=== PATIENT | female | born 1985 | race Caucasian/White ===

== ENCOUNTER 2018-12-21 17:04 | Emergency (ER) | payer MEDICAID ==
[~2018-12-21] VITALS: Ht 172.7 cm; Wt 81.6 kg
[2018-12-21 17:47] VITALS: BP 113/75
--- NOTE | 2018-12-21 17:49 | NUR ---
TRIAGE COMPLETE OKAY TO WAIT IN LOBBY FOR BED IN ED.
--- NOTE | 2018-12-21 18:53 | NUR ---
INFORMED DR RUIZ HEADACHE WAS GETTING WORSE. NO NEW ORDERS RECEIVED. OKAY TO CONTINUE TO WAIT IN LOBBY.
--- NOTE | 2018-12-21 19:45 | NUR ---
PT BIB SELF FOR HEADACHE. NO N/V, BLURRED VISION. PT APPEARS TO BE IN NO ACUTE DISTRESS. PT SEEN AND EVALUATED BY DR TINSLEY SEE HIS REPORT FOR FURTHER NOTES.
[2018-12-21] MEDS ORDERED: KETOROLAC 60 MG/2 ML VIAL IM ONE (20:15)
[2018-12-21 20:29] VITALS: BP 113/75
--- NOTE | 2018-12-21 20:29 | NUR ---
Patient discharged with v/s stable. Written and verbal after care instructions given and explained. Patient alert, oriented and verbalized understanding of instructions. Ambulatory with steady gait. All questions addressed prior to discharge. ID band removed. Patient advised to follow up with PMD. Rx of naprosyn given. Patient educated on indication of medication including possible reaction and side effects. Opportunity to ask questions provided and answered. d/c by dr ferrell
== END 2018-12-21 20:29 | disposition home or self-care (01) ==
LOC: MED 17:04
DX: G44.209 Tension-type headache, unspecified, not intractable (principal); G43.909 Migraine, unspecified, not intractable, without status migrainosus
CPT/HCPCS: 96372; 99283; J1885

== ENCOUNTER 2019-03-18 18:50 | Emergency (ER) | payer MEDICAID ==
[~2019-03-18] VITALS: Ht 172.7 cm; Wt 93.4 kg
[2019-03-18 19:38] VITALS: BP 134/82
--- NOTE | 2019-03-18 19:45 | NUR ---
PT AMBULATED TO LOBBY WITH VSS. URINE SPECIMEN PROVIDED.
--- NOTE | 2019-03-18 20:56 | NUR ---
PATIENT ASSESSMENT COMPLETED AT THIS TIME. PATIENT SITTING UP IN CHAIR. NO NEEDS ADDRESSED AT THIS TIME.
[2019-03-18] MEDS ORDERED: KETOROLAC 30 MG/ML VIAL IM ONE (21:00)
[2019-03-18 21:18] VITALS: BP 134/82
--- NOTE | 2019-03-18 21:18 | NUR ---
Patient discharged with v/s stable. Written and verbal after care instructions given and explained. Patient alert, oriented and verbalized understanding of instructions. Ambulatory with to car. All questions addressed prior to discharge. ID band removed. Patient advised to follow up with PMD. Rx of tamiflu, naprozen, promethazine given. Patient educated on indication of medication including possible reaction and side effects. Opportunity to ask questions provided and answered.
--- NOTE | 2019-03-18 21:56 | NUR ---
Note eliot in ED - 03/18/19 at 2319 by FRANK Patient discharged with v/s stable. Written and verbal after care instructions given and explained. Patient verbalized understanding. Ambulatory with steady gait. All questions addressed prior to discharge. Advised to follow up with PMD.
== END 2019-03-18 21:18 | disposition home or self-care (01) ==
LOC: MED 18:50
DX: J06.9 Acute upper respiratory infection, unspecified (principal); G43.909 Migraine, unspecified, not intractable, without status migrainosus
CPT/HCPCS: 96372; 99283; J1885

== ENCOUNTER 2019-06-21 21:49 | Emergency (ER) | payer MEDICAID ==
[~2019-06-21] VITALS: Ht 167.6 cm; Wt 65.8 kg
--- NOTE | 2019-06-21 21:49 | NUR ---
PT C/O SOB/ DRY COUGH FOR ONE WEEK. NO CONTACTS WITH COVID SUSPECTS. RESP EVEN AND UNLABORED. LUNG SOUNDS CLEAR IN BILAT MEDINA. NO PMH NKA
--- NOTE | 2019-06-21 21:50 | NUR ---
PRINCE LOGAN ASSESSED PT IN TENT OUTSIDE FOR COVID SYMPTOMS
[2019-06-21 21:52] VITALS: BP 124/78
[2019-06-21 22:00] VITALS: BP 124/78
--- NOTE | 2019-06-21 22:02 | NUR ---
Patient discharged with v/s stable. Written and verbal after care instructions given and explained. Patient alert, oriented and verbalized understanding of instructions. Ambulatory with steady gait. All questions addressed prior to discharge. ID band removed. Patient advised to follow up with PMD. Rx of MOTRIN, PROMETHAZINE given. Patient educated on indication of medication including possible reaction and side effects. Opportunity to ask questions provided and answered.
== END 2019-06-21 22:01 | disposition home or self-care (01) ==
LOC: MED 21:49
DX: J06.9 Acute upper respiratory infection, unspecified (principal); G43.909 Migraine, unspecified, not intractable, without status migrainosus; R03.0 Elevated blood-pressure reading, without diagnosis of hypertension
CPT/HCPCS: 99283

== ENCOUNTER 2019-10-03 20:35 | Emergency (ER) | payer MEDICAID, SELFPAY ==
[~2019-10-03] VITALS: Ht 172.7 cm; Wt 77.1 kg
[2019-10-03 20:49] VITALS: BP 124/81
--- NOTE | 2019-10-03 20:58 | NUR ---
PT TO A/W IN TENT FOR MEDICAL EVAULATION. PT WEARING MASK
--- NOTE | 2019-10-03 21:08 | NUR ---
PT SEEN AND EVALUATED BY PRINCE LANDAVERDE IN TENT.
--- NOTE | 2019-10-03 21:21 | NUR ---
COVID SWAB COLLECTED
--- NOTE | 2019-10-03 21:25 | NUR ---
Patient discharged with v/s stable. Written and verbal after care instructions given and explained. Patient verbalized understanding. Ambulatory with steady gait. All questions addressed prior to discharge. Advised to follow up with PMD.
--- NOTE | 2019-10-05 19:11 | NUR ---
RECEIVED POSITIVE COVID RESULTS. LAB WILL BRING HARD COPY
== END 2019-10-03 21:25 | disposition home or self-care (01) ==
LOC: EEVIPCON 20:35 → MED 20:35
DX: U07.1 COVID-19 (principal); B34.9 Viral infection, unspecified
CPT/HCPCS: 99283; U0003

== ENCOUNTER 2019-10-08 10:57 | Emergency (ER) | payer MEDICAID, SELFPAY ==
[~2019-10-08] VITALS: Ht 172.7 cm; Wt 77.1 kg
[2019-10-08 11:09] VITALS: BP 106/64
--- NOTE | 2019-10-08 11:15 | NUR ---
URINE SAMPLE CUP GIVEN TO PT
--- NOTE | 2019-10-08 11:18 | NUR ---
DR. LANDAVERDE EVALUATING PT AT THIS TIME
--- NOTE | 2019-10-08 11:20 | NUR ---
33/F C/O URINARY FREQUENCY, URGENCY, DYSURIA X 2 DAYS DENIES N/V/D/FEVER. APPEARS NAD. VSS. COVID POSITIVE 10/02 HX- MIGRAINES
--- NOTE | 2019-10-08 11:26 | NUR ---
PT UNABLE TO PROVIDE URINE SAMPLE, DR. LANDAVERDE IS AWARE
--- NOTE | 2019-10-08 11:35 | NUR ---
Patient discharged with v/s stable. Written and verbal after care instructions given and explained. Patient alert, oriented and verbalized understanding of instructions. Ambulatory with steady gait. All questions addressed prior to discharge. ID band removed. Patient advised to follow up with PMD. Rx of MACROBID AND PHENAZOPYRIDINE given. Patient educated on indication of medication including possible reaction and side effects. Opportunity to ask questions provided and answered.
[2019-10-08 11:43] VITALS: BP 106/64
== END 2019-10-08 11:35 | disposition home or self-care (01) ==
LOC: MED 10:57
DX: N39.0 Urinary tract infection, site not specified (principal); G43.909 Migraine, unspecified, not intractable, without status migrainosus
CPT/HCPCS: 99283

== ENCOUNTER 2019-10-13 18:47 | Emergency (ER) | payer MEDICAID, SELFPAY ==
[~2019-10-13] VITALS: Ht 172.7 cm; Wt 77.1 kg
--- NOTE | 2019-10-13 19:10 | NUR ---
C/O COUGH & SOB X 2 WEEKS , + BODY ACHES , +LOSS OF TASTE & SMELL , +HOT FLASHES, -FEVER PT TESTED + COVID 10/04/19 PMH: MING PATIÑO
[2019-10-13 19:12] VITALS: BP 104/57
--- NOTE | 2019-10-13 19:15 | NUR ---
33 Y/O FEMALE PRESENTED TO ED C/O COUGH AND SOB X 2 WEEKS. PT STATES SHE TESTED + COVID ON 10/04/19. PT STATES SHE HAS HAD PRODUCTIVE COUGH + 2 WEEKS , BODY ACHES , HOT FLASHES. PT DENIES N/V/D/FEVER. PT SA02 100% , RR EVEN AND UNLABORED, BL CRACKLES IN BASES. NAD NOTED AT THIS TIME. PMH: NONE NKA PT HAS NOT TAKEN ANY MEDICATION FOR COUGH.
--- NOTE | 2019-10-13 19:26 | NUR ---
PER ERMD , NO NEED TO SWAB FOR COVID , PT TESTED + 10/04/19
--- NOTE | 2019-10-13 19:40 | NUR ---
ERMD AT BEDSIDE FOR EVALUATION
[2019-10-13 20:16] VITALS: BP 104/57
--- NOTE | 2019-10-13 20:16 | NUR ---
Patient discharged with v/s stable. Written and verbal after care instructions given and explained. Patient verbalized understanding. Ambulatory with steady gait. All questions addressed prior to discharge. Advised to follow up with PMD. PT provided contact information for infectious disease to receive covid19 testing results.
== END 2019-10-13 20:16 | disposition home or self-care (01) ==
LOC: MED 18:47
DX: U07.1 COVID-19 (principal); J02.9 Acute pharyngitis, unspecified; R05 Cough
CPT/HCPCS: 71045; 99283

== ENCOUNTER 2020-09-01 08:14 | Emergency (ER) | payer MEDICAID, SELFPAY ==
[~2020-09-01] VITALS: Ht 170.2 cm; Wt 77.1 kg
[2020-09-01 08:30] VITALS: BP 129/77
[2020-09-01] MEDS ORDERED: ONDANSETRON 4 MG/2 ML VIAL IVP ONE (08:40)
[2020-09-01] MEDS ORDERED: MECLIZINE 25 MG TAB PO ONE (08:40)
[2020-09-01] MEDS ORDERED: NACL 0.9% 1,000 ML IV ONE (08:40)
[2020-09-01 09:40] LABS: BASOPHILS % (AUTO) 0.8 % (0.0-2.0); EOSINOPHILS # (AUTO) 0.2 K/uL (0-0.4); EOSINOPHILS % (AUTO) 3.1 % (0.0-4.0); HEMATOCRIT 40.3 % (36-48); HEMOGLOBIN 13.9 g/dL (12.0-16.0); LYMPHOCYTES # (AUTO) 1.3 K/uL (2.5-16.5); MEAN CORPUSCULAR HEMOGLOBIN 32 pg (27-31); MEAN CORPUSCULAR HGB CONC 34 g/dL (33-37); MEAN CORPUSCULAR VOLUME 93.8 fL (80-94); MONOCYTES # (AUTO) 0.4 K/uL (0.8-1.0); MONOCYTES % (AUTO) 8.4 % (1.7-9.3); NEUTROPHILS # (AUTO) 3.3 K/uL (1.8-7.7); NEUTROPHILS % (AUTO) 63.7 % (42.2-75.2); PLATELET COUNT (AUTO) 257 K/uL (140-450); RED BLOOD CELL COUNT(AUTO) 4.29 MIL/uL (4.20-5.40); RED CELL DISTRIBUTION WIDTH 13.1 % (11.6-13.7); WHITE BLOOD COUNT (AUTO) 5.2 K/uL (4.8-10.8)
[2020-09-01 10:05] LABS: ALBUMIN 3.9 g/dL (3.4-5.0); ANION GAP 16.7 (8-16); CARBON DIOXIDE 22.8 mmol/L (21-32); CREATININE 0.7 mg/dL (0.6-1.3); PHOSPHORUS 4.1 mg/dL (2.5-4.9); POTASSIUM 3.5 mmol/L (3.5-5.1); TOTAL BILIRUBIN 0.7 mg/dL (0.0-1.0)
[2020-09-01] MEDS ORDERED: ONDA-24 SL (10:27)
[2020-09-01 10:37] VITALS: BP 116/73
== END 2020-09-01 10:38 | disposition home or self-care (01) ==
LOC: MED 08:14
DX: R42 Dizziness and giddiness (principal); G43.909 Migraine, unspecified, not intractable, without status migrainosus; Z79.899 Other long term (current) drug therapy
CPT/HCPCS: 36415; 80053; 81002; 81025; 83690; 83735; 84100; 84484; 85025; 93005; 96361; 96374; 99284; J2405; J7030; J8597

== ENCOUNTER 2020-12-10 20:15 | Emergency (ER) | payer MEDICAID ==
[~2020-12-10] VITALS: Ht 172.7 cm; Wt 79.4 kg
[~2020-12-10 20:15] MED LIST: ONDA-24 SL
[2020-12-10 20:26] VITALS: BP 136/75
--- NOTE | 2020-12-10 20:26 | NUR ---
TO BED AMBULATORY
--- NOTE | 2020-12-10 20:43 | NUR ---
C/C MIGRAINE HEADACHE THAT STARTED TODAY. 12/24 PAIN, LOCATED TO RIGHT ORBITAL; DULL AND PERSISTENT. +N/V X 3 EPISODES. +LIGHT SENSITIVITY. NEGATIVE STROKE ASSESSMENT. DENIES INJURY TO HEAD. REPORTS HER PCP RX HER MEDICATIONS, BUT HER PURSE WAS STOLEN AND SHE NO LONGER HAS THE MEDICATIONS WITH HER. MED HX: MIGRAINES ALLERGIES: NKA
[2020-12-10] MEDS: NACL 0.9% 1,000 ML IV ONE (20:48)
[2020-12-10] MEDS: MAG SULF 2000 MG/WATER PREMIX 50 ML IV ONE (21:08)
[2020-12-10] MEDS: ACETAMINOPHEN EXTRA STRENGTH 500 MG TAB PO ONE (21:18)
[2020-12-10] MEDS: PROCHLORPERAZINE 10 MG/2 ML VIAL IVP ONE (21:18)
[2020-12-10] MEDS: diphenhydrAMINE 50 MG/ML VIAL IVP ONE (21:19)
[2020-12-10] MEDS: KETOROLAC 15 MG/ML VIAL IVP ONE (21:19)
--- NOTE | 2020-12-10 22:21 | NUR ---
Patient appears to be resting comfortably in bed. Vital Signs within normal limits. Respirations even and unlabored. CHILDREN REMAIN AT BEDSIDE. PT REPORTS RELIEF IN PAIN.
[2020-12-10 22:50] VITALS: BP 102/68
== END 2020-12-10 22:50 | disposition home or self-care (01) ==
LOC: MED 20:15
DX: G43.909 Migraine, unspecified, not intractable, without status migrainosus (principal)
CPT/HCPCS: 96365; 96375; 99284; J0780; J1200; J1885; J3475; J7030

== ENCOUNTER 2021-01-28 22:28 | Emergency (ER) | payer MEDICAID ==
[~2021-01-28] VITALS: Ht 172.7 cm; Wt 93.9 kg
[~2021-01-28 22:28] MED LIST changes: +ONDA-188 SL; -ONDA-24 SL
[2021-01-28 23:49] VITALS: BP 113/83
--- NOTE | 2021-01-28 23:55 | NUR ---
PATIENT TO BED 1
--- NOTE | 2021-01-28 23:58 | NUR ---
PT TAKEN TO BED 3
[2021-01-29] MEDS ORDERED: methylPREDNISolone SS 125 MG/2 ML VIAL IVP ONE (00:20)
[2021-01-29] MEDS ORDERED: FAMOTIDINE 20 MG/2 ML VIAL IVP ONE (00:20)
[2021-01-29] MEDS ORDERED: diphenhydrAMINE 50 MG/ML VIAL IVP ONE (00:20)
[2021-01-29] MEDS ORDERED: DIPH25TA53 PO (00:54)
[2021-01-29] MEDS ORDERED: FAMO-90 PO (00:54)
[2021-01-29] MEDS ORDERED: EPIN1KIT31 IM (00:54)
[2021-01-29] MEDS ORDERED: PRED20TA6 PO (00:54)
[2021-01-29 01:21] VITALS: BP 131/71
[2021-01-29] MEDS ORDERED: IBUP-2218 PO (01:23)
--- NOTE | 2021-01-29 01:25 | NUR ---
PATIENT DC HOME STABLE VITALS SIGNS IN NORMAL LIMITS ALL DC INSTRUCTION GAVE AND EXPLAINED //Meenakshi RN
== END 2021-01-29 01:17 | disposition home or self-care (01) ==
LOC: MED 22:28
DX: L50.9 Urticaria, unspecified (principal); Z79.899 Other long term (current) drug therapy
CPT/HCPCS: 96374; 96375; 99284; J1200; J2930; J3490

== ENCOUNTER 2021-02-05 13:47 | Emergency (ER) | payer MEDICAID ==
[~2021-02-05] VITALS: Ht 172.7 cm; Wt 81.6 kg
[~2021-02-05 13:47] MED LIST changes: +DIPH25TA53 PO; +EPIN1KIT31 IM; +FAMO-90 PO; +IBUP-2218 PO; +PRED20TA6 PO
--- NOTE | 2021-02-05 14:20 | NUR ---
CALLED PT IN LOBBY, NO ANSWER.
[2021-02-05 14:37] VITALS: BP 129/83
--- NOTE | 2021-02-05 14:42 | NUR ---
PT AT HER CAR.
[2021-02-05 16:45] VITALS: BP 129/83
== END 2021-02-05 16:00 | disposition home or self-care (01) ==
LOC: MED 13:47
DX: L29.9 Pruritus, unspecified (principal); Z79.1 Long term (current) use of non-steroidal anti-inflammatories (NSAID); Z79.899 Other long term (current) drug therapy
CPT/HCPCS: 99281

== ENCOUNTER 2021-03-23 09:53 | Emergency (ER) | payer MEDICAID ==
[~2021-03-23] VITALS: Ht 172.7 cm; Wt 92.1 kg
[2021-03-23 09:58] VITALS: BP 121/74
[2021-03-23] MEDS ORDERED: PRED20TA5 PO (11:44)
[2021-03-23] MEDS ORDERED: DIPH25TA53 PO (11:44)
[2021-03-23 12:06] VITALS: BP 121/74
--- NOTE | 2021-03-23 12:06 | NUR ---
Patient discharged with v/s stable. Written and verbal after care instructions ABOUT RASH given and explained. Patient alert, oriented and verbalized understanding of instructions. Ambulatory with steady gait. All questions addressed prior to discharge. ID band removed. Patient advised to follow up with PMD. Rx of BENADRYL AND DELTASONE given. Patient educated on indication of medication including possible reaction and side effects. Opportunity to ask questions provided and answered.
== END 2021-03-23 12:06 | disposition home or self-care (01) ==
LOC: MED 09:53
DX: R21 Rash and other nonspecific skin eruption (principal); Z79.899 Other long term (current) drug therapy; Z79.1 Long term (current) use of non-steroidal anti-inflammatories (NSAID)
CPT/HCPCS: 99283

== ENCOUNTER 2022-05-27 08:01 | Emergency (ER) | payer MEDICAID, OTHER ==
[~2022-05-27] VITALS: Ht 172.7 cm; Wt 90.7 kg
[~2022-05-27 08:01] MED LIST changes: +PRED20TA5 PO
[2022-05-27 08:09] VITALS: BP 159/64
--- NOTE | 2022-05-27 08:19 | NUR ---
GENERALIZED PAINFUL (12/24), ITCHY RASHES ONSET TWO DAYS AGO. DENIES RECENT TRAVEL, DENIES RECENT FOOD, DENIES NEW SOAP OR CREAM. TOOK A BENADRYL YESTERDAY BUT WITH NO RELIEF. STATES THAT THIS HAPPENED IN DECEMBER LAST YEAR WELL. DENIES FEVER, DENIES SOB. PMH: DENIES MEDS: NONE NKA
--- NOTE | 2022-05-27 08:45 | NUR ---
ATTEMPTED TO BRING PT BACK, NOT FOUND IN LOBBY/OUTSIDE
--- NOTE | 2022-05-27 08:55 | NUR ---
PT AMBULATED TO ER BED 11
[2022-05-27] MEDS ORDERED: KETOROLAC 60 MG/2 ML VIAL IM ONE (09:20)
[2022-05-27] MEDS ORDERED: diphenhydrAMINE 50 MG CAP PO ONE (09:20)
[2022-05-27] MEDS ORDERED: PRED20TA5 PO (09:42)
[2022-06-18] MEDS ORDERED: CEPH-588 PO (14:47)
== END 2022-05-27 10:06 | disposition home or self-care (01) ==
LOC: MED 08:01
DX: R21 Rash and other nonspecific skin eruption (principal); T78.49XA Other allergy, initial encounter; Z79.899 Other long term (current) drug therapy; X58.XXXA Exposure to other specified factors, initial encounter
CPT/HCPCS: 96372; 99283; J1885; Q0163

== ENCOUNTER 2022-06-14 22:27 | Emergency (ER) | payer OTHER ==
[~2022-06-14] VITALS: Ht 172.7 cm; Wt 90.7 kg
[2022-06-14 22:40] VITALS: BP 123/81
--- NOTE | 2022-06-14 22:43 | NUR ---
TO LOBBY A/W BED AMBULATORY
[2022-06-14 23:49] LABS: APPEARANCE,URINE CLEAR (CLEAR); BILIRUBIN,URINE NEGATIVE (NEGATIVE); BLOOD, URINE TRACE-I (NEGATIVE); COLOR,URINE YELLOW (YELLOW); LEUKOCYTE ESTERASE ,URINE 1+ (NEGATIVE); NITRITE, URINE NEGATIVE (NEGATIVE); UGLUCOSE NEGATIVE (NEGATIVE)
[2022-06-15 00:05] LABS: RBC,URINE 0-5 /HPF (0-5)
[2022-06-15] MEDS ORDERED: ACETAMINOPHEN EXTRA STRENGTH 500 MG TAB PO ONE (00:25)
[2022-06-15] MEDS ORDERED: ONDANSETRON 4 MG ODT PO ONE (00:25)
[2022-06-15 01:49] LABS: BASOPHILS # (AUTO) 0.1 K/uL (0.00-0.22); BASOPHILS % (AUTO) 0.7 % (0.0-2.0); EOSINOPHILS # (AUTO) 0.2 K/uL (0-0.4); EOSINOPHILS % (AUTO) 1.6 % (0.0-4.0); HEMATOCRIT 38.3 % (36-48); HEMOGLOBIN 13.1 g/dL (12.0-16.0); LYMPHOCYTES # (AUTO) 1.8 K/uL (2.5-16.5); MEAN CORPUSCULAR HEMOGLOBIN 32 pg (27-31); MEAN CORPUSCULAR HGB CONC 34 g/dL (33-37); MEAN CORPUSCULAR VOLUME 92.9 fL (80-94); MONOCYTES % (AUTO) 9.5 % (1.7-9.3); NEUTROPHILS # (AUTO) 7.2 K/uL (1.8-7.7); NEUTROPHILS % (AUTO) 70.2 % (42.2-75.2); PLATELET COUNT (AUTO) 273 K/uL (140-450); RED BLOOD CELL COUNT(AUTO) 4.13 MIL/uL (4.20-5.40); RED CELL DISTRIBUTION WIDTH 13.6 % (11.6-13.7); WHITE BLOOD COUNT (AUTO) 10.2 K/uL (4.8-10.8)
[2022-06-15 02:02] LABS: ALBUMIN 3.2 g/dL (3.4-5.0); ANION GAP 7.8 (8-16); CARBON DIOXIDE 29.4 mmol/L (21-32); CREATININE 0.6 mg/dL (0.6-1.3); POTASSIUM 4.2 mmol/L (3.5-5.1); TOTAL BILIRUBIN 0.4 mg/dL (0.0-1.0)
--- NOTE | 2022-06-15 03:45 | NUR ---
RECEIVED IN BED 9 WITH C/O ANXIETY ATTACK FOR 3 DAYS, NAUSEA , VOMITING ALL DAY , H/A .
[2022-06-15] MEDS ORDERED: ONDA-188 PO (05:04)
[2022-06-15 05:20] VITALS: BP 123/81
[2022-06-18] MEDS ORDERED: CEPH-588 PO (14:47)
--- NOTE | 2022-06-18 15:01 | NUR ---
LATE ENTRY. RECEIVED POSITIVE URINE CULTURE. FORM GIVEN TO DR MROGAN. NEW RX OF KEFLEX SENT TO PTS [facility]ARM[facility]Y. DR MORGAN ATTEMPTED TO CALL PT, NO ANSWER, LEFT MESSAGE. FORM PLACED IN BINDER.
== END 2022-06-15 05:20 | disposition home or self-care (01) ==
LOC: MED 22:27
DX: O26.891 Other specified pregnancy related conditions, first trimester (principal); R11.2 Nausea with vomiting, unspecified; F41.9 Anxiety disorder, unspecified; L50.9 Urticaria, unspecified; Z3A.01 Less than 8 weeks gestation of pregnancy; Z79.899 Other long term (current) drug therapy
CPT/HCPCS: 36415; 76815; 80053; 81001; 81025; 83690; 84702; 85025; 87086; 99284; Q0092; Q0162

== ENCOUNTER 2023-01-31 23:53 | Emergency (ER) | payer MEDICAID, OTHER ==
[~2023-01-31] VITALS: Ht 172.7 cm; Wt 90.7 kg
[~2023-01-31 23:53] MED LIST changes: +CEPH-588 PO; +ONDA-188 PO
[2023-02-01] VITALS: BP 124/69; PULSE 83; RESP 17; TEMP 97.9; O2SAT 99
== END 2023-02-01 01:45 | disposition left against medical advice (07) ==
LOC: MED 23:53
DX: L50.9 Urticaria, unspecified (principal); Z53.21 Procedure and treatment not carried out due to patient leaving prior to being seen by health care provider
CPT/HCPCS: 99281

== ENCOUNTER 2023-03-14 22:53 | Emergency (ER) | payer MEDICAID ==
[~2023-03-14] VITALS: Ht 172.7 cm; Wt 99.8 kg
[2023-03-14 23:01] VITALS: BP 103/72; PULSE 113; RESP 16; TEMP 103.3; O2SAT 96
[2023-03-14] MEDS ORDERED: ACETAMINOPHEN EXTRA STRENGTH 500 MG TAB PO ONE (23:10)
[2023-03-15] MEDS ORDERED: methylPREDNISolone SS 125 MG in WATER STERILE 2 ML IM ONE (03:10)
[2023-03-15] MEDS ORDERED: WATER STERILE 10 ML MC ONE (03:19)
[2023-03-15] MEDS ORDERED: methylPREDNISolone SS 125 MG/2 ML VIAL ONE (03:19)
[2023-03-15 03:47] LABS: FLU A ANTIGEN negative (NEGATIVE); FLU B ANTIGEN negative (NEGATIVE)
[2023-03-15] MEDS ORDERED: PRED20TA5 PO (03:52)
[2023-03-15] MEDS ORDERED: FAMO-90 PO (03:52)
[2023-03-15] MEDS ORDERED: DIPH25TA53 PO (03:52)
[2023-03-15 04:00] VITALS: BP 112/64; PULSE 79; RESP 19; TEMP 98; O2SAT 98
== END 2023-03-15 04:00 | disposition home or self-care (01) ==
LOC: MED 22:53
DX: L50.0 Allergic urticaria (principal); Z20.822 Contact with and (suspected) exposure to COVID-19; Z79.899 Other long term (current) drug therapy
CPT/HCPCS: 87426; 87804; 96372; 99283; J2930

== ENCOUNTER 2023-04-21 11:38 | Emergency (ER) | payer MEDICAID ==
[~2023-04-21] VITALS: Ht 172.7 cm; Wt 90.7 kg
[2023-04-21 11:49] VITALS: BP 114/70; PULSE 66; RESP 16; TEMP 97.5; O2SAT 98
[2023-04-21 13:10] LABS: APPEARANCE,URINE CLEAR (CLEAR); BILIRUBIN,URINE NEGATIVE (NEGATIVE); BLOOD, URINE NEGATIVE (NEGATIVE); COLOR,URINE YELLOW (YELLOW); LEUKOCYTE ESTERASE ,URINE 2+ (NEGATIVE); NITRITE, URINE NEGATIVE (NEGATIVE); PROTEIN,URINE NEGATIVE (NEGATIVE); UGLUCOSE NEGATIVE (NEGATIVE); UROBILINOGEN,URINE 0.2 EU/dL (0.2 - 1)
[2023-04-21 13:20] LABS: BACTERIA,URINE >30 (MANY) /HPF (None Seen); RBC,URINE 0-5 /HPF (0-5); SQUAMOUS EPITHELIAL CELL,UR 4-10 (MOD) /LPF (0-3 (FEW))
== END 2023-04-21 13:26 | disposition home or self-care (01) ==
LOC: MED 11:38
DX: R30.0 Dysuria (principal); Z79.899 Other long term (current) drug therapy; Z79.2 Long term (current) use of antibiotics; Z79.1 Long term (current) use of non-steroidal anti-inflammatories (NSAID)
CPT/HCPCS: 81001; 81025; 87086; 99283

== ENCOUNTER 2023-06-23 12:32 | Emergency (ER) | payer MEDICAID ==
[~2023-06-23] VITALS: Ht 172.7 cm; Wt 105.3 kg
[2023-06-23 12:55] VITALS: BP 106/72; PULSE 106; RESP 18; TEMP 101.7; O2SAT 98
[2023-06-23] MEDS: ACETAMINOPHEN EXTRA STRENGTH 500 MG TAB PO ONE (13:13)
[2023-06-23] MEDS: IBUPROFEN 600 MG TAB PO ONE (13:26)
[2023-06-23 13:49] VITALS: BP 106/72; PULSE 106; RESP 18; TEMP 101.7; O2SAT 98
[2023-06-23 13:49] LABS: BILIRUBIN,URINE NEGATIVE (NEGATIVE); COLOR,URINE YELLOW (YELLOW); LEUKOCYTE ESTERASE ,URINE 2+ (NEGATIVE); NITRITE, URINE POSITIVE (NEGATIVE); PROTEIN,URINE TRACE (NEGATIVE); UGLUCOSE NEGATIVE (NEGATIVE)
[2023-06-23 13:51] LABS: APPEARANCE,URINE HAZY (CLEAR)
[2023-06-23 13:55] LABS: BLOOD, URINE 1+ (NEGATIVE)
[2023-06-23 13:57] LABS: BACTERIA,URINE 1+ /HPF (None Seen); SQUAMOUS EPITHELIAL CELL,UR 0-3 (FEW) /LPF (0-3 (FEW))
[2023-06-23 13:58] LABS: WBC,URINE 20-60 /HPF (0-5)
[2023-06-23] MEDS ORDERED: TOR15I INJ (14:39)
[2023-06-23] MEDS ORDERED: ONDA-188 PO (14:45)
[2023-06-23] MEDS ORDERED: IBUP-2213 PO (14:45)
[2023-06-23] MEDS ORDERED: CEPH-588 PO (14:45)
[2023-06-23] MEDS: KETOROLAC 30 MG/ML VIAL IM SCH (15:02)
== END 2023-06-23 15:06 | disposition home or self-care (01) ==
LOC: MED 12:32
DX: N39.0 Urinary tract infection, site not specified (principal); G43.909 Migraine, unspecified, not intractable, without status migrainosus; Z79.899 Other long term (current) drug therapy
CPT/HCPCS: 81001; 81025; 87086; 96372; 99283; J1885